=== PATIENT | female | born 1985 | race Caucasian/White ===

== ENCOUNTER 2019-11-19 16:00 | Emergency (ER) | payer OTHER ==
[~2019-11-19] VITALS: Ht 162.6 cm; Wt 88.5 kg
[2019-11-19] MEDS ORDERED: SYNTHROID150 MCG (16:13)
== END 2019-11-19 18:34 | disposition home or self-care (01) ==
LOC: ER 16:00
DX: G44.209 Tension-type headache, unspecified, not intractable (principal)